=== PATIENT | male | born 1960 | race Caucasian/White ===

== ENCOUNTER → 2017-05-17 | Emergency (ER) | payer OTHER ==
[~2017-05-17] VITALS: Ht 188 cm; Wt 106.6 kg
[~2017-05-17] MED LIST: ABILIFY30 MG; AVANDARYL 4 MG-1 TAB PO; CLONAZEPAM1 MG; CRESTOR10 MG; DEPAKOTE ER250 MG; GLIPIZIDE ER10 MG; JANUMET 50-1,01 EACH; KETO10TA2 PO; LANTUS SOL100 UNIT/1; LEXAPRO20 MG; LISINOPRIL5 MG; NEURONTIN300 MG; REMERON45 MG; WELLBUTRIN SR150 MG
== END | disposition home or self-care (01) ==
LOC: ER 20:06
DX: M51.27 Other intervertebral disc displacement, lumbosacral region (principal); M25.552 Pain in left hip

== ENCOUNTER 2018-03-14 14:13 | Emergency (ER) | payer OTHER ==
[~2018-03-14] VITALS: Ht 188 cm; Wt 110.2 kg
[2018-03-14] MEDS ORDERED: COZAAR25 MG (14:41)
== END 2018-03-14 17:15 | disposition home or self-care (01) ==
LOC: ER 14:13
DX: M51.27 Other intervertebral disc displacement, lumbosacral region (principal); R10.31 Right lower quadrant pain

== ENCOUNTER 2018-04-09 11:38 | Emergency (ER) | payer OTHER ==
[~2018-04-09] VITALS: Ht 188 cm; Wt 110.2 kg
[~2018-04-09 11:38] MED LIST changes: +COZAAR25 MG
[2018-04-09] MEDS ORDERED: PERCOCET 5-3251 EACH PO (14:39)
== END 2018-04-09 14:56 | disposition home or self-care (01) ==
LOC: ER 11:38
DX: G54.4 Lumbosacral root disorders, not elsewhere classified (principal)

== ENCOUNTER 2018-04-15 11:21 | Outpatient (CLI) | payer OTHER ==
[~2018-04-15 11:21] MED LIST changes: +PERCOCET 5-3251 EACH PO
== END 2018-04-15 11:32 | disposition home or self-care (01) ==
LOC: MRI 11:21
DX: M54.16 Radiculopathy, lumbar region (principal)
CPT/HCPCS: 72148